=== PATIENT | female | born 1980 | race Caucasian/White ===

== ENCOUNTER 2018-04-25 06:30 | Day surgery (SDC) | payer OTHER | END 2018-04-25 17:05 | disposition home or self-care (01) | LOC: CIR.AMB 06:30 | DX: O02.1 Missed abortion (principal); Z3A.01 Less than 8 weeks gestation of pregnancy ==

== ENCOUNTER 2019-08-07 05:46 | Day surgery (SDC) | payer OTHER ==
[~2019-08-07 05:46] MED LIST: PEPCID PO
== END 2019-08-07 16:45 | disposition home or self-care (01) ==
LOC: CIR.AMB 05:46
PROVIDERS: ATTEND Obstetrics & Gynecology
DX: O03.4 Incomplete spontaneous abortion without complication (principal)

== ENCOUNTER 2019-08-08 21:40 | Emergency (ER) | payer OTHER ==
[~2019-08-08] VITALS: Ht 162.6 cm; Wt 54.9 kg
== END 2019-08-09 09:07 | disposition home or self-care (01) ==
LOC: ER 21:40
DX: K59.09 Other constipation (principal); R10.2 Pelvic and perineal pain